=== PATIENT | female | born 2000 | race Caucasian/White ===

== ENCOUNTER 2023-09-29 20:56 | Emergency (ER) | payer OTHER, SELFPAY ==
[2023-09-29] MEDS ORDERED: Acetaminophen 500 MG TAB ONE (23:06)
== END 2023-09-29 23:49 | disposition home or self-care (01) ==
LOC: ERS 20:56
DX: S52.501A Unspecified fracture of the lower end of right radius, initial encounter for closed fracture (principal); W21.02XA Struck by soccer ball, initial encounter
CPT/HCPCS: 29125